=== PATIENT | male | born 1990 | race Caucasian/White ===

== ENCOUNTER 2018-05-27 03:16 | Emergency (ER) | payer OTHER ==
[2018-05-27 03:32] VITALS: TEMP 97.9
[2018-05-27] MEDS ORDERED: KETOROLAC TROMETHAMINE INJ 30 MG/ML VIAL IM ONE (03:34)
--- NOTE | 2018-05-27 04:40 | RAD ---
EXAM: Three view(s) of the lumbar spine. INDICATION: Pain, lumbar spine. COMPARISON: None. FINDINGS: Alignment: Intact. Fracture: No acute compression fracture or subluxation. There are two calcifications along the left flank which measure up to 3 mm in size IMPRESSION: 1. No acute compression fracture. 2. Two calcifications along the left flank which may represent renal stones. Electronically signed by: Baldomero Singh MD 05/27/2018 4:37 AM CDT Workstation: [id number]
--- NOTE | 2018-05-27 04:40 | RAD ---
EXAM: Two view(s) of the thoracic spine. INDICATION: Pain, thoracic spine. COMPARISON: None. FINDINGS: Alignment: Intact. Fracture: No acute compression fracture or subluxation. Paravertebral soft tissues: No large hematoma. IMPRESSION: 1. No acute compression fracture. Electronically signed by: Baldomero Singh MD 05/27/2018 4:37 AM CDT Workstation: [email or web address]
[2018-05-27 04:47] VITALS: BP 125/74; O2SAT 100
--- NOTE | 2018-05-27 04:49 | ED.PDOC ---
History of Present Illness - General Chief Complaint: Back Pain or Injury Stated Complaint: mid back pain Time Seen by Provider: 05/27/18 04:33 Source: patient Exam Limitations: no limitations - History of Present Illness Initial Comments: Patient presents with back pain for 5 days. It is located in the midthoracic and lumbar regions on the left side. Sharp in nature. Intermittent. Worse with movement, better with rest. Non-radiating. No previous episodes. No recent trauma. No associated symptoms. The patient works long hours where he has to sit at a desk. No other complaints. Timing/Duration: 1 week Severity: moderate Improving Factors: rest Worsening Factors: movement Associated Symptoms: denies symptoms Allergies/Adverse Reactions: Allergies NO KNOWN ALLERGY Allergy (Verified 05/27/18 03:31) Home Medications: Ambulatory Orders Cyclobenzaprine HCl [Flexeril] 10 mg PO TID #20 tab 05/27/18 Loratadine [Claritin] 10 mg PO DAILY 05/27/18 Meloxicam 7.5 mg PO DAILY #20 tab 05/27/18 Review of Systems - Review of Systems Constitutional: States: no symptoms reported EENTM: States: no symptoms reported Respiratory: States: no symptoms reported Cardiology: States: no symptoms reported Genitourinary: States: no symptoms reported Musculoskeletal: States: see HPI Neurological: States: no symptoms reported Endocrine: States: no symptoms reported Hematologic/Lymphatic: States: no symptoms reported Past Medical History (General) - Patient Medical History Hx Seizures: No Hx Stroke: No Hx Dementia: No Hx Asthma: No Hx of COPD: No Hx Cardiac Disorders: No Hx Congestive Heart Failure: No Hx Pacemaker: No Hx Hypertension: No Hx Thyroid Disease: No Hx Diabetes: No Hx Gastroesophageal Reflux: No Hx Renal Disease: No Hx Cancer: No Hx of HIV: No Hx Hepatitis C: No Hx MRSA: No Surgical History: no surgical history - Vaccination History Hx Tetanus, Diphtheria Vaccination: No Hx Influenza Vaccination: No Hx Pneumococcal Vaccination: No Family Medical History - Family History Mother Family History: Unknown Physical Exam - Physical Exam General Appearance: Alert Eye Exam: bilateral normal Ears, Nose, Throat: normal ENT inspection Neck: non-tender, full range of motion, supple Respiratory: lungs clear, normal breath sounds Cardiovascular/Chest: normal peripheral pulses, regular rate, rhythm Gastrointestinal/Abdominal: normal bowel sounds, non tender, soft Back Exam: normal inspection, no vertebral tenderness, muscle spasm - on left lumbar area Extremity: normal range of motion, non-tender, normal inspection Neurologic: no motor/sensory deficits, alert, normal mood/affect, oriented x 3 Skin Exam: normal color Lymphatic: no adenopathy Progress - Progress Progress: 05/27/18 04:50 Radiographs of the lumbar and thoracic vertebrae show no bony abnormalities, fractures, nor dislocations. Patient's pain resolved with Toradol 30 mg IM x one. Likely a lower back sprain. Care instructions given. E.R. warnings given. Questions were elicited and answered. Patient voiced understanding and agreement with the plan. Departure - Departure Clinical Impression: Low back sprain Disposition: Discharge to Home or Self Care Condition: Good Departure Forms: ED Discharge - Pt. Copy, Patient Portal Self Enrollment Instructions: DI for Back Strain or Sprain Diet: resume usual diet Activity: increase activity as tolerated Referrals: Glen Ross MD [Primary Care Provider] - 1-2 Weeks Prescriptions: Cyclobenzaprine HCl [Flexeril] 10 mg PO TID #20 tab Meloxicam 7.5 mg PO DAILY #20 tab Home Medications: Ambulatory Orders Cyclobenzaprine HCl [Flexeril] 10 mg PO TID #20 tab 05/27/18 Loratadine [Claritin] 10 mg PO DAILY 05/27/18 Meloxicam 7.5 mg PO DAILY #20 tab 05/27/18 Additional Instructions: Take medications as prescribed. Do not drink alcohol, drive, or operate heavy machinery after taking the Flexeril ( cyclobenzaprine). Apply heat to the painful area for at least 15 minutes, twice per day. Use a Neoprene back brace, especially while doing physical activity or sitting for long periods of time. If an activity is painful, stop doing it. If pain has not resolved in 14 days, see your regular doctor about further evaluation.
== END 2018-05-27 05:07 | disposition home or self-care (01) ==
LOC: ER 03:16
DX: S33.5XXA Sprain of ligaments of lumbar spine, initial encounter (principal); M54.6 Pain in thoracic spine; X58.XXXA Exposure to other specified factors, initial encounter; Y92.9 Unspecified place or not applicable
CPT/HCPCS: 72070; 72100; J1885